=== PATIENT | female | born 1995 | race Caucasian/White ===

== ENCOUNTER → 2024-04-27 09:38 | Outpatient (REF) | payer OTHER, SELFPAY ==
[2024-04-27 10:56] LABS: % Basophils 0.7 % (0-2); % Eosinophils 1.1 % (0-6); % Lymphocytes 32.5 % (20.5-51.1); % Neutrophils 55.7 % (42.2-75.2); Absolute Eosinophils 0.1 10^3/uL (0-0.7); Absolute Lymphocytes 1.4 10^3/uL (1.2-3.4); Absolute Monocytes 0.4 10^3/uL (0.1-0.6); Absolute Neutrophils 2.5 10^3/uL (1.4-6.5); Hematocrit 37.3 % (37.0-47.0); Hemoglobin 13.2 g/dL (12.0-16.0); Mean Corp Hgb Conc. 35.4 g/dL (33.0-37.0); Mean Corpuscular Hgb 31.1 pg (27.0-31.0); Nucleated Red Blood Cells % 0 %; Platelet Count 192 10^3/uL (130-400); Red Blood Cell Count 4.24 10^6/uL (4.20-5.40); Red Cell Dist. Width 11.9 % (11.5-14.5); White Blood Cell Count 4.4 10^3/uL (4.8-10.8)
[2024-04-27 13:58] LABS: ALT (SGPT) 19 U/L (0-35); AST (SGOT) 24 U/L (14-36); Albumin 4.9 g/dl (3.5-5.0); Alkaline Phosphatase 29 U/L (38-126); Blood Urea Nitrogen 14 mg/dl (7-17); Calcium 9.5 mg/dl (8.4-10.2); Carbon Dioxide 25 mmol/L (22-30); Chloride 102 mmol/L (98-107); Glucose 67 mg/dl (70-99); Sodium 140 mmol/L (135-145); Total Bilirubin 0.3 mg/dl (0.2-1.3); Total Protein 7.5 g/dl (6.3-8.2); eGFR > 60.00
[2024-04-27 14:51] LABS: Erythrocyte Sed Rate 11 mm/hour (0-20)
[2024-04-27 15:19] LABS: C-Reactive Protein < 5.00 mg/L (0.0-10.00)
[2024-04-27 15:36] LABS: Vitamin D, 25-OH*** 47.2 ng/mL (30-80)
[2024-04-27 15:50] LABS: TSH Reflex To Free T4 2.23 uIU/ml (0.47-4.68)
[2024-04-27 15:54] LABS: Ferritin 30.5 ng/ml (6.24-137)
[2024-04-27 16:09] LABS: Vitamin B12 574 pg/ml (239-931)
[2024-04-27 23:48] LABS: IgA 102 mg/dl (70-400)
[2024-04-29 21:11] LABS: Endomysial IgA Antibody Titer <1:10 (<1:10)
== END ==
LOC: REG 09:38
PROVIDERS: ATTENDING PHYSICIAN Internal Medicine; FAMILY PHYSICIAN Family Medicine Adolescent Medicine
DX: K90.0 Celiac disease (principal); R10.84 Generalized abdominal pain
CPT/HCPCS: 36415; 80053; 82306; 82607; 82728; 82784; 83516; 83993; 84443; 85025; 85652; 86140; 86231